=== PATIENT | male | born 1970 | race Caucasian/White ===

== ENCOUNTER 2022-08-03 14:49 | Emergency (ER) | payer BC ==
[~2022-08-03] VITALS: Ht 165.1 cm; Wt 130.2 kg
[2022-08-03] MEDS ORDERED: CLONIDINE HCL 0.1 MG TAB PO ONE (15:00)
[2022-08-03 15:39] LABS: BASOPHILS % 0.4 % (0.0-1.0); EOSINOPHILS # (AUTO) 0.1 (0.0-0.4); EOSINOPHILS % 0.6 % (0.0-6.0); HEMATOCRIT 46.3 % (38.2-49.6); LYMPHOCYTES # (AUTO) 2.2 (1.0-3.2); LYMPHOCYTES % 27.6 % (18.0-39.1); MEAN CORPUSCULAR HEMOGLOBIN 28.2 pg (28-32); MEAN CORPUSCULAR HGB CONC 32.4 g/dL (31-35); MONOCYTES # (AUTO) 0.8 (0.2-0.8); MONOCYTES % 10.3 % (4.4-11.3); NEUTROPHILS # (AUTO) 4.9 (2.1-6.9); NEUTROPHILS % 60.9 % (38.7-80.0); PLATELET COUNT 298 x10e3/uL (140-360); RED BLOOD COUNT 5.32 x10e6/uL (4.3-5.7); RED CELL DISTRIBUTION WIDTH 14.7 % (11.7-14.4)
[2022-08-03 15:57] LABS: ALANINE AMINOTRANSFERASE 95 IU/L (0-55); ALBUMIN 4.5 g/dL (3.5-5.0); ALBUMIN/GLOBULIN RATIO 1.3 (0.8-2.0); ALKALINE PHOSPHATASE 65 IU/L (40-150); ANION GAP 18.1 mmol/L (8-16); BLOOD UREA NITROGEN 18 mg/dL (7-26); BUN/CREATININE RATIO 21 (6-25); CALCIUM 9.3 mg/dL (8.4-10.2); CARBON DIOXIDE 25 mmol/L (22-29); CHLORIDE 100 mmol/L (98-107); CREATINE KINASE 324 IU/L (30-200); CREATININE, SERUM 0.87 mg/dL (0.72-1.25); GLUCOSE 88 mg/dL (74-118); POTASSIUM 3.1 mmol/L (3.5-5.1); SODIUM 140 mmol/L (136-145)
[2022-08-03] MEDS ORDERED: CLONIDINE HCL0.1 MG PO (16:42)
== END 2022-08-03 16:59 | disposition home or self-care (01) ==
LOC: ER 14:54
DX: I10 Essential (primary) hypertension (principal); F43.10 Post-traumatic stress disorder, unspecified; F41.9 Anxiety disorder, unspecified; R94.31 Abnormal electrocardiogram [ECG] [EKG]
CPT/HCPCS: 36415; 71045; 80053; 82550; 82553; 84484; 85025; 93005; 99283

== ENCOUNTER 2023-04-15 08:36 | Emergency (ER) | payer BC ==
[~2023-04-15] VITALS: Ht 165.1 cm; Wt 117.2 kg
[~2023-04-15 08:36] MED LIST: CLONIDINE HCL0.1 MG PO
[2023-04-15 08:44] VITALS: O2SAT 97
[2023-04-15] MEDS ORDERED: CELEBREX200 MG PO (08:54)
[2023-04-15] MEDS ORDERED: WELLBUTRIN SR150 MG PO (08:54)
[2023-04-15] MEDS ORDERED: VITAMIN D3125 MCG (08:54)
[2023-04-15] MEDS ORDERED: OLMESARTAN-HCT1 EAC2 (08:54)
[2023-04-15] MEDS ORDERED: NIFEDIPINE ER30 M1 PO (08:54)
[2023-04-15] MEDS ORDERED: BUSPIRONE HCL15 MG (08:54)
[2023-04-15] MEDS ORDERED: DEXAMETHASONE SOD PHOS 10 MG/1 ML VIAL IM ONE (09:00)
[2023-04-15] MEDS ORDERED: PREDNISONE20 MG PO (09:00)
[2023-04-15] MEDS ORDERED: ZANAFLEX4 MG PO (09:00)
[2023-04-15] MEDS ORDERED: KETOROLAC TROMETHAMINE 60 MG/2 ML VIAL IM ONE (09:00)
[2023-04-15] MEDS ORDERED: DEXAMETHASONE SOD PHOS INJ 4 MG/ML SDV ONE (09:03)
[2023-04-15] MEDS ORDERED: KETOROLAC TROME10 MG PO (09:09)
== END 2023-04-15 09:12 | disposition home or self-care (01) ==
LOC: FSED 08:44
DX: M54.41 Lumbago with sciatica, right side (principal); I10 Essential (primary) hypertension; F41.9 Anxiety disorder, unspecified; F43.10 Post-traumatic stress disorder, unspecified
CPT/HCPCS: 96372; 99283; J1100; J1885

== ENCOUNTER 2023-04-17 01:13 | Emergency (ER) | payer BC ==
[~2023-04-17] VITALS: Ht 165.1 cm; Wt 117.0 kg
[~2023-04-17 01:13] MED LIST changes: +BUSPIRONE HCL15 MG; +CELEBREX200 MG PO; +KETOROLAC TROME10 MG PO; +NIFEDIPINE ER30 M1 PO; +OLMESARTAN-HCT1 EAC2; +PREDNISONE20 MG PO; +VITAMIN D3125 MCG; +WELLBUTRIN SR150 MG PO; +ZANAFLEX4 MG PO
[2023-04-17] MEDS ORDERED: SODIUM CHLORIDE 0.9% 1000ML 1,000 ML IV STA (01:43)
[2023-04-17] MEDS ORDERED: Morphine 4mg INJECTION 4 MG/ML INJ IV STA (01:50)
[2023-04-17 02:04] LABS: BASOPHILS % 0.4 % (0.0-1.0); EOSINOPHILS # (AUTO) 0.1 (0.0-0.4); EOSINOPHILS % 0.8 % (0.0-6.0); HEMATOCRIT 41.3 % (38.2-49.6); HEMOGLOBIN 13.8 g/dL (14.0-18.0); LYMPHOCYTES # (AUTO) 2.9 (1.0-3.2); LYMPHOCYTES % 34.3 % (18.0-39.1); MEAN CORPUSCULAR HEMOGLOBIN 29.4 pg (28-32); MEAN CORPUSCULAR HGB CONC 33.4 g/dL (31-35); MEAN CORPUSCULAR VOLUME 88.1 fL (81-99); MONOCYTES % 11.4 % (4.4-11.3); NEUTROPHILS # (AUTO) 4.5 (2.1-6.9); NEUTROPHILS % 52.9 % (38.7-80.0); PLATELET COUNT 272 x10e3/uL (140-360); RED BLOOD COUNT 4.69 x10e6/uL (4.3-5.7); RED CELL DISTRIBUTION WIDTH 14.2 % (11.7-14.4)
[2023-04-17] MEDS ORDERED: ONDANSETRON HCL INJ 2MG/ML 2ML 2 MG/ML VIAL IV STA (02:04)
[2023-04-17 02:06] LABS: CLARITY,URINE CLEAR (CLEAR); COLOR,URINE YELLOW (YELLOW); KETONES,URINE NEGATIVE (NEGATIVE); LEUKOCYTE ESTERASE ,URINE NEGATIVE (NEGATIVE); NITRITE,URINE NEGATIVE (NEGATIVE); PROTEIN,URINE DIPSTICK NEGATIVE (NEGATIVE); URINE UROBILINOGEN 0.2 mg/dL (0.2 - 1)
[2023-04-17 02:14] LABS: BACTERIA,URINE FEW /HPF; EPITHELIAL CELLS,URINE RARE /LPF; MUCUS,URINE FEW (RARE); RBC,URINE 0-5 /HPF (0-5); WBC,URINE (MAN) 0-5 /HPF (0-5)
[2023-04-17 02:25] LABS: ALBUMIN 3.8 g/dL (3.5-5.0); ALBUMIN/GLOBULIN RATIO 1.2 (0.8-2.0); ANION GAP 12.3 mmol/L (8-16); CALCIUM 8.7 mg/dL (8.4-10.2); CREATININE, SERUM 0.83 mg/dL (0.72-1.25); POTASSIUM 3.3 mmol/L (3.5-5.1)
[2023-04-17] MEDS ORDERED: HYDROCODON-ACE1 EAC9 PO (03:28)
[2023-04-17] MEDS ORDERED: PREDNISONE20 MG PO (03:28)
[2023-04-17 03:47] VITALS: BP 132/87; O2SAT 100
== END 2023-04-17 03:51 | disposition home or self-care (01) ==
LOC: ER 01:19
DX: M54.41 Lumbago with sciatica, right side (principal); X50.0XXA Overexertion from strenuous movement or load, initial encounter; I10 Essential (primary) hypertension; F41.9 Anxiety disorder, unspecified; F43.10 Post-traumatic stress disorder, unspecified
CPT/HCPCS: 36415; 74176; 80053; 81001; 83690; 85025; 99284; J2270; J2405; J7030